=== PATIENT | female | born 1950 | race Two or more races ===

== ENCOUNTER 2025-09-12 13:54 | Emergency (ER) | payer OTHER ==
[~2025-09-12] VITALS: Ht 157.5 cm; Wt 63.0 kg
[2025-09-12] MEDS ORDERED: HUMULIN 70100 UNIT/2 (15:07)
[2025-09-12] MEDS ORDERED: ZESTRIL40 M1 (15:07)
[2025-09-12 15:08] VITALS: BP 176/73; O2SAT 100
[2025-09-12] MEDS ORDERED: KEPPRA1000 MG (15:08)
[2025-09-12] MEDS ORDERED: MYSOLINE50 MG (15:08)
[2025-09-12] MEDS ORDERED: LAMICTAL5 MG (15:08)
[2025-09-12] MEDS ORDERED: CEFTRIAXONE SODIUM 2,000 MG VIAL IV ONE (15:45)
[2025-09-12] MEDS ORDERED: ACETAMINOPHEN 325 MG TABLET PO ONE (16:00)
[2025-09-12] MEDS ORDERED: 0.9 % SODIUM CHLORIDE 1,000 ML IV SCH (16:00)
[2025-09-12] MEDS ORDERED: ACETAMINOPHEN 500 MG GEL..CAP PO ONE (16:12)
[2025-09-12] MEDS ORDERED: CEFTRIAXONE SODIUM 2,000 MG VIAL ONE (16:13)
[2025-09-12 16:52] LABS: BASO % 0.5 % (0.1-1.2); EOS # 0.08 (0.04-0.54); EOS % 0.6 % (0.7-7.0); LYMPH # 1.96 (1.18-3.74); LYMPH % 15.3 % (19.3-53.1); MEAN PLATELET VOLUME 9.30 fl (9.4-12.4); MONO # 1.20 (0.24-0.82); MONO % 9.4 % (4.7-12.5); NEUT # 9.50 (1.56-6.13); NEUT % 74.0 % (34.0-71.1); RED CELL DISTRIBUTION WIDTH 12.5 % (11.6-14.4)
[2025-09-12 17:22] LABS: ALT/SGPT 20.0 U/L (12-78); AST/SGOT 17.0 U/L (15-37); BILIRUBIN TOTAL 0.67 mg/dL (0.3-1.2); BUN CREA RATIO 15.0 (7.0-25.0); CREATININE SERUM 1.09 mg/dL (0.55-1.02); GFR 49.2; GLOBULINA 3.5 G/DL (2.4-3.5); GLUCOSE FASTING 173.0 mg/dL (65-100); OSMOLALITY SERUM 283.0 MOSM/KG (275-295)
== END 2025-09-13 03:05 | disposition home or self-care (01) ==
LOC: ER 13:54
PROVIDERS: General Practice
DX: Z90.10 Acquired absence of unspecified breast and nipple (principal); T88.9XXA Complication of surgical and medical care, unspecified, initial encounter; I10 Essential (primary) hypertension; E11.9 Type 2 diabetes mellitus without complications; Z79.4 Long term (current) use of insulin
CPT/HCPCS: 36415; 96365; 96366; 99282; J0696; J7030